=== PATIENT | male | born 1950 | race Caucasian/White ===

== ENCOUNTER 2022-09-02 09:08 | Inpatient (IN) ==
[2022-09-02] MEDS ORDERED: ONDANSETRON 4 MG/2 ML VIAL IV STA (09:28)
[2022-09-02] MEDS ORDERED: SODIUM CHLORIDE 0.9% 1,000 ML IV STA ×2 (09:28→10:50)
[2022-09-02 09:53] LABS: Basophils # 0.1 10*3/uL (0.0-0.2); Basophils % 0.7 % (0.0-0.8); Eosinophils # 0.1 10*3/uL (0.0-0.87); Eosinophils % 0.5 % (0.00-10.9); Hematocrit 46.1 VOL% (42.0-52.0); Hemoglobin 15.7 GM/DL (14.0-18.0); Immature Granulocytes % 0.4 %; Immature Granulocytes Absolute 0.05 #; Lymphocytes # 3.8 10*3/uL (1.4-4.0); Lymphocytes % 27.8 % (21.2-54.2); Mean Corpuscular HGB Conc 34.1 GM/DL (32-36); Mean Corpuscular Volume 90.9 FL (87-102); Mean Platelet Volume 10.7 FL (9.6-12.0); Monocytes # 1.2 10*3/uL (0.11-0.8); Monocytes % 8.6 % (1.7-12.7); Platelet Count 392 T/CUMM (130-400); Red Blood Count 5.07 MC/CUMM (3.8-5.5); Red Cell Distribution Width 14.1 % (9.3-17.3); White Blood Count 13.8 T/CUMM (4-12)
[2022-09-02 10:09] LABS: Alanine Aminotransferase 14 U/L (16-61); Albumin 3.5 G/DL (3.4-5.0); Alkaline Phosphatase 84 U/L (45-117); Aspartate Amino Transferase 20 U/L (0-37); Blood Urea Nitrogen 16 MG/DL (7-18); Carbon Dioxide 22 MMOL/L (21-32); Chloride 100 MMOL/L (98-107); Glucose 123 MG/DL (74-106); Osmolality,Calculated 265.5 MOS/KG (273-304); Potassium 4.2 MMOL/L (3.5-5.1); Sodium 132 MMOL/L (136-145); Total Protein 7.6 G/DL (6.4-8.2)
[2022-09-02] MEDS ORDERED: hydrALAZINE 20 MG/1 ML VIAL IV PRN (11:19)
[2022-09-02] MEDS ORDERED: SIMETHICONE CHEW 125 MG TABLET PO PRN (11:19)
[2022-09-02 11:29] LABS: PT Patient Result 20.8 SECS (10.1-12.1)
[2022-09-02] MEDS ORDERED: ENOXAPARIN 40 MG/0.4 ML SYRINGE SUBCUT SCH (11:30)
[2022-09-02 12:24] LABS: Mucus,Urine Occasional /LPF (Occasional); RBC,Urine 1 /HPF (0-4)
[2022-09-02 12:28] LABS: Urine Appearance Clear (Clear); Urine Color Yellow (Yellow); Urine Specific Gravity 1.015 (1.001-1.035)
[2022-09-02 12:29] LABS: Bilirubin,Urine Negative (Negative); Blood, Urine Negative (Negative); Glucose,Urine (UA) Negative (Negative); Ketones,Urine 40 mg/dL (Negative); Nitrite,Urine Negative (Negative); Protein,Urine Negative (Negative); Urine Urobilinogen 0.2 eU/dL (<2.0)
[2022-09-02] MEDS: PANTOPRAZOLE 40 MG VIAL IV SCH (12:48)
[2022-09-02] MEDS: LACTATED RINGERS 1,000 ML IV SCH (12:48)
[2022-09-02] MEDS: SUCRALFATE 1 GM/10 ML UDCUP PO SCH ×4 (14:17→21:29)
[2022-09-02] MEDS: ALBUTEROL 2.5 MG/3 ML NEB RESP TX SCH ×2 (14:46→18:57)
[2022-09-02] MEDS: carvediloL 6.25 MG TABLET PO SCH (21:11)
[2022-09-02] MEDS: predniSONE 20 MG TABLET PO SCH ×2 (21:11→21:29)
[2022-09-02] MEDS: TAMSULOSIN 0.4 MG CAPSULE PO SCH (21:12)
[2022-09-02] MEDS: SACUBITRIL/VALSARTAN 49-51 MG TABLET PO SCH (21:12)
[2022-09-02] MEDS: MAGNESIUM OXIDE 400 MG TABLET PO SCH (21:29)
[2022-09-03] MEDS: ALBUTEROL 2.5 MG/3 ML NEB RESP TX SCH ×4 (00:21→18:50)
[2022-09-03] MEDS: LACTATED RINGERS 1,000 ML IV SCH ×3 (00:26→23:33)
[2022-09-03 05:37] LABS: Basophils # 0.1 10*3/uL (0.0-0.2); Basophils % 0.4 % (0.0-0.8); Eosinophils # 0.1 10*3/uL (0.0-0.87); Eosinophils % 0.7 % (0.00-10.9); Hematocrit 37.9 VOL% (42.0-52.0); Hemoglobin 12.8 GM/DL (14.0-18.0); Immature Granulocytes % 0.4 %; Immature Granulocytes Absolute 0.05 #; Lymphocytes # 3.5 10*3/uL (1.4-4.0); Lymphocytes % 25.5 % (21.2-54.2); Mean Corpuscular HGB Conc 33.8 GM/DL (32-36); Mean Corpuscular Volume 91.8 FL (87-102); Mean Platelet Volume 10.8 FL (9.6-12.0); Monocytes # 1.4 10*3/uL (0.11-0.8); Monocytes % 10.2 % (1.7-12.7); Neutrophils % 62.8 % (38.7-73.9); Platelet Count 324 T/CUMM (130-400); Red Blood Count 4.13 MC/CUMM (3.8-5.5); Red Cell Distribution Width 14.2 % (9.3-17.3); White Blood Count 13.6 T/CUMM (4-12)
[2022-09-03 06:12] LABS: Albumin 2.4 G/DL (3.4-5.0); Bilirubin,Total 0.8 MG/DL (0.20-1.00); Calcium 8.3 MG/DL (8.5-10.1); Osmolality,Calculated 274.5 MOS/KG (273-304); Potassium 3.6 MMOL/L (3.5-5.1); Risk Ratio 4.35; Thyroid Stimulating Hormone 1.48 uIU/ml (0.358-3.74); Total Protein 5.6 G/DL (6.4-8.2); VLDL Cholesterol 19.4 MG/DL
[2022-09-03] MEDS: ONDANSETRON 4 MG/2 ML VIAL IV PRN (07:50)
[2022-09-03 08:35] LABS: INR 1.8; PT Patient Result 18.8 SECS (10.1-12.1)
[2022-09-03] MEDS ORDERED: WARFARIN 3 MG TABLET PO SCH (09:00)
[2022-09-03] MEDS: PANTOPRAZOLE 40 MG VIAL IV SCH (09:21)
[2022-09-03] MEDS: SACUBITRIL/VALSARTAN 49-51 MG TABLET PO SCH ×2 (09:22→20:13)
[2022-09-03] MEDS: predniSONE 20 MG TABLET PO SCH ×2 (09:23→20:14)
[2022-09-03] MEDS: ASPIRIN EC 81 MG TABLET PO SCH (09:23)
[2022-09-03] MEDS: SERTRALINE 25 MG TABLET PO SCH (09:23)
[2022-09-03] MEDS: carvediloL 6.25 MG TABLET PO SCH ×2 (09:23→20:13)
[2022-09-03] MEDS ORDERED: HYDROmorphone 1 MG/1 ML SYRINGE IV PRN (11:48)
[2022-09-03] MEDS ORDERED: KETOROLAC 15 MG/1 ML VIAL IV PRN (11:49)
[2022-09-03] MEDS: ACETAMINOPHEN 325 MG TABLET PO PRN (17:14)
[2022-09-03] MEDS: WARFARIN 3 MG TABLET PO SCH (17:31)
[2022-09-03] MEDS: TAMSULOSIN 0.4 MG CAPSULE PO SCH (20:13)
[2022-09-03] MEDS: MAGNESIUM OXIDE 400 MG TABLET PO SCH (20:13)
[2022-09-04 05:33] LABS: Basophils # 0.1 10*3/uL (0.0-0.2); Basophils % 0.5 % (0.0-0.8); Eosinophils # 0.2 10*3/uL (0.0-0.87); Eosinophils % 1.6 % (0.00-10.9); Hematocrit 40.2 VOL% (42.0-52.0); Hemoglobin 13.6 GM/DL (14.0-18.0); Immature Granulocytes % 0.6 %; Immature Granulocytes Absolute 0.07 #; Lymphocytes # 3.5 10*3/uL (1.4-4.0); Lymphocytes % 27.4 % (21.2-54.2); Mean Corpuscular HGB Conc 33.8 GM/DL (32-36); Mean Corpuscular Volume 93.3 FL (87-102); Monocytes # 1.1 10*3/uL (0.11-0.8); Monocytes % 8.6 % (1.7-12.7); Neutrophils % 61.3 % (38.7-73.9); Platelet Count 351 T/CUMM (130-400); Red Blood Count 4.31 MC/CUMM (3.8-5.5); Red Cell Distribution Width 14.2 % (9.3-17.3); White Blood Count 12.7 T/CUMM (4-12)
[2022-09-04 05:51] LABS: INR 2.2
[2022-09-04 05:58] LABS: Calcium 8.2 MG/DL (8.5-10.1); Osmolality,Calculated 274.5 MOS/KG (273-304); Potassium 3.8 MMOL/L (3.5-5.1)
[2022-09-04] MEDS: ALBUTEROL 2.5 MG/3 ML NEB RESP TX SCH ×4 (07:40→19:30)
[2022-09-04] MEDS: SACUBITRIL/VALSARTAN 49-51 MG TABLET PO SCH ×2 (10:00→20:57)
[2022-09-04] MEDS: carvediloL 6.25 MG TABLET PO SCH ×2 (10:00→20:57)
[2022-09-04] MEDS: PANTOPRAZOLE 40 MG VIAL IV SCH (10:00)
[2022-09-04] MEDS: ASPIRIN EC 81 MG TABLET PO SCH (10:00)
[2022-09-04] MEDS: SERTRALINE 25 MG TABLET PO SCH (10:00)
[2022-09-04] MEDS: predniSONE 20 MG TABLET PO SCH ×2 (10:01→22:43)
[2022-09-04] MEDS: LACTATED RINGERS 1,000 ML IV SCH ×2 (10:11→22:43)
[2022-09-04] MEDS: WARFARIN 3 MG TABLET PO SCH (17:56)
[2022-09-04] MEDS: ACETAMINOPHEN 325 MG TABLET PO PRN (17:56)
[2022-09-04] MEDS: TAMSULOSIN 0.4 MG CAPSULE PO SCH (20:57)
[2022-09-04] MEDS: MAGNESIUM OXIDE 400 MG TABLET PO SCH (20:57)
[2022-09-05 05:09] LABS: Basophils # 0.1 10*3/uL (0.0-0.2); Basophils % 0.4 % (0.0-0.8); Eosinophils # 0.3 10*3/uL (0.0-0.87); Eosinophils % 2.2 % (0.00-10.9); Hemoglobin 12.9 GM/DL (14.0-18.0); Immature Granulocytes % 0.4 %; Immature Granulocytes Absolute 0.05 #; Lymphocytes # 3.1 10*3/uL (1.4-4.0); Lymphocytes % 22.7 % (21.2-54.2); Mean Corpuscular HGB Conc 33.9 GM/DL (32-36); Mean Corpuscular Volume 90.9 FL (87-102); Mean Platelet Volume 10.7 FL (9.6-12.0); Monocytes # 1.4 10*3/uL (0.11-0.8); Monocytes % 10.6 % (1.7-12.7); Neutrophils % 63.7 % (38.7-73.9); Platelet Count 356 T/CUMM (130-400); Red Blood Count 4.18 MC/CUMM (3.8-5.5); White Blood Count 13.6 T/CUMM (4-12)
[2022-09-05 05:23] LABS: Calcium 8.4 MG/DL (8.5-10.1); Osmolality,Calculated 270.8 MOS/KG (273-304); Potassium 3.7 MMOL/L (3.5-5.1)
[2022-09-05] MEDS: LACTATED RINGERS 1,000 ML IV SCH ×3 (06:04→17:40)
[2022-09-05 06:12] LABS: Anisocytosis 1+; Macrocytosis Slight; Platelet Estimate Normal
[2022-09-05 06:13] LABS: Target Cells Few
[2022-09-05] MEDS: ALBUTEROL 2.5 MG/3 ML NEB RESP TX SCH ×4 (07:08→19:15)
[2022-09-05] MEDS ORDERED: MAGNESIUM SULF RIDER 2 GM/50 ML PREMIX IV ONE (07:26)
[2022-09-05] MEDS: ASPIRIN EC 81 MG TABLET PO SCH (09:54)
[2022-09-05] MEDS: predniSONE 20 MG TABLET PO SCH ×2 (09:54→21:28)
[2022-09-05] MEDS: carvediloL 6.25 MG TABLET PO SCH ×2 (09:54→21:25)
[2022-09-05] MEDS: SACUBITRIL/VALSARTAN 49-51 MG TABLET PO SCH ×2 (09:55→21:25)
[2022-09-05] MEDS: PANTOPRAZOLE 40 MG VIAL IV SCH (09:55)
[2022-09-05] MEDS: SERTRALINE 25 MG TABLET PO SCH (09:56)
[2022-09-05] MEDS: ONDANSETRON 4 MG/2 ML VIAL IV PRN (12:29)
[2022-09-05] MEDS: WARFARIN 3 MG TABLET PO SCH (18:13)
[2022-09-05] MEDS: MAGNESIUM OXIDE 400 MG TABLET PO SCH (21:25)
[2022-09-05] MEDS: TAMSULOSIN 0.4 MG CAPSULE PO SCH (21:25)
[2022-09-05] MEDS: ACETAMINOPHEN 325 MG TABLET PO PRN (21:31)
[2022-09-06] MEDS: LACTATED RINGERS 1,000 ML IV SCH ×2 (03:56→13:21)
[2022-09-06] MEDS: ALBUTEROL 2.5 MG/3 ML NEB RESP TX SCH ×3 (06:55→13:34)
[2022-09-06 08:05] LABS: Basophils # 0.1 10*3/uL (0.0-0.2); Basophils % 0.5 % (0.0-0.8); Eosinophils # 0.3 10*3/uL (0.0-0.87); Eosinophils % 2.2 % (0.00-10.9); Hematocrit 39.6 VOL% (42.0-52.0); Hemoglobin 13.3 GM/DL (14.0-18.0); Immature Granulocytes % 0.4 %; Immature Granulocytes Absolute 0.04 #; Lymphocytes # 2.7 10*3/uL (1.4-4.0); Lymphocytes % 23.6 % (21.2-54.2); Mean Corpuscular HGB Conc 33.6 GM/DL (32-36); Mean Corpuscular Volume 90.8 FL (87-102); Monocytes % 9.3 % (1.7-12.7); Platelet Count 386 T/CUMM (130-400); Red Blood Count 4.36 MC/CUMM (3.8-5.5); Red Cell Distribution Width 14.3 % (9.3-17.3); White Blood Count 11.2 T/CUMM (4-12)
[2022-09-06 08:20] LABS: Calcium 8.5 MG/DL (8.5-10.1); Osmolality,Calculated 270.8 MOS/KG (273-304); Potassium 3.7 MMOL/L (3.5-5.1)
[2022-09-06 08:23] LABS: Anisocytosis 1+; Burr Cells Few; Platelet Estimate Normal
[2022-09-06 08:24] VITALS: BP 138/70
[2022-09-06 08:24] LABS: Macrocytosis Slight
[2022-09-06] MEDS: SACUBITRIL/VALSARTAN 49-51 MG TABLET PO SCH (08:38)
[2022-09-06] MEDS: carvediloL 6.25 MG TABLET PO SCH (08:38)
[2022-09-06] MEDS: PANTOPRAZOLE 40 MG VIAL IV SCH (08:39)
[2022-09-06] MEDS: SERTRALINE 25 MG TABLET PO SCH (08:39)
[2022-09-06] MEDS: ASPIRIN EC 81 MG TABLET PO SCH (08:39)
[2022-09-06] MEDS: predniSONE 20 MG TABLET PO SCH (08:40)
[2022-09-09] MEDS ORDERED: WARFARIN 4 MG TABLET PO SCH (18:00)
== END 2022-09-06 16:28 | disposition home or self-care (01) | DRG 389 ==
LOC: N.EDINP 09:08 → N.ED 09:08 → N.EDINP 13:28 → N.2E 13:33 → SUATTDRO 09-03 08:08
PROVIDERS: ADMIT Internal Medicine; ATTEND Internal Medicine

== ENCOUNTER 2022-09-13 09:10 | Observation (INO) ==
[2022-09-13] MEDS ORDERED: ONDANSETRON 4 MG/2 ML VIAL IV STA ×2 (09:52→13:52)
[2022-09-13] MEDS ORDERED: SODIUM CHLORIDE 0.9% 1,000 ML IV STA ×2 (09:52→13:52)
[2022-09-13 10:10] LABS: Basophils # 0.1 10*3/uL (0.0-0.2); Eosinophils # 0.1 10*3/uL (0.0-0.87); Eosinophils % 0.9 % (0.00-10.9); Hematocrit 41.7 VOL% (42.0-52.0); Hemoglobin 14.3 GM/DL (14.0-18.0); Immature Granulocytes % 0.2 %; Immature Granulocytes Absolute 0.02 #; Lymphocytes # 3.3 10*3/uL (1.4-4.0); Lymphocytes % 33.1 % (21.2-54.2); Mean Corpuscular HGB Conc 34.3 GM/DL (32-36); Mean Corpuscular Volume 89.9 FL (87-102); Mean Platelet Volume 11.2 FL (9.6-12.0); Monocytes # 1.4 10*3/uL (0.11-0.8); Monocytes % 14.1 % (1.7-12.7); Neutrophils % 50.7 % (38.7-73.9); Platelet Count 369 T/CUMM (130-400); Red Blood Count 4.64 MC/CUMM (3.8-5.5); Red Cell Distribution Width 14.4 % (9.3-17.3); White Blood Count 9.8 T/CUMM (4-12)
[2022-09-13 10:34] LABS: Albumin 3.7 G/DL (3.4-5.0); Bilirubin,Total 1.7 MG/DL (0.20-1.00); Calcium 9.7 MG/DL (8.5-10.1); Osmolality,Calculated 271.8 MOS/KG (273-304); Potassium 3.9 MMOL/L (3.5-5.1); Total Protein 7.9 G/DL (6.4-8.2)
[2022-09-13] MEDS ORDERED: hydrALAZINE 20 MG/1 ML VIAL IV PRN (17:17)
[2022-09-13] MEDS ORDERED: ACETAMINOPHEN 325 MG TABLET PO PRN (17:17)
[2022-09-13] MEDS ORDERED: MORPHINE 2 MG/1 ML SYRINGE IV PRN (17:17)
[2022-09-13 17:40] LABS: Bilirubin,Urine Negative (Negative); Blood, Urine Negative (Negative); Glucose,Urine (UA) Negative (Negative); Ketones,Urine 40 mg/dL (Negative); Nitrite,Urine Negative (Negative); Protein,Urine Negative (Negative); Urine Appearance Clear (Clear); Urine Color Yellow (Yellow); Urine Specific Gravity 1.015 (1.001-1.035); Urine Urobilinogen 0.2 eU/dL (<2.0)
[2022-09-13 17:44] LABS: RBC,Urine 1 /HPF (0-4)
[2022-09-13] MEDS: DEXTROSE 5% NACL 0.45% 1,000 ML IV SCH (18:05)
[2022-09-13] MEDS: ONDANSETRON 4 MG/2 ML VIAL IV PRN ×2 (19:04→23:00)
[2022-09-13] MEDS ORDERED: WARFARIN 3 MG TABLET PO SCH (19:30)
[2022-09-13] MEDS: carvediloL 6.25 MG TABLET PO SCH (20:39)
[2022-09-13] MEDS: TAMSULOSIN 0.4 MG CAPSULE PO SCH (20:39)
[2022-09-13] MEDS: SACUBITRIL/VALSARTAN 49-51 MG TABLET PO SCH (20:39)
[2022-09-13] MEDS: MAGNESIUM OXIDE 400 MG TABLET PO SCH (20:40)
[2022-09-13] MEDS ORDERED: ENOXAPARIN 40 MG/0.4 ML SYRINGE SUBCUT SCH (21:00)
[2022-09-13 21:54] LABS: INR 1.2; PT Patient Result 13.5 SECS (10.1-12.1)
[2022-09-14] MEDS: ONDANSETRON 4 MG/2 ML VIAL IV PRN (03:58)
[2022-09-14 06:01] LABS: Basophils # 0.1 10*3/uL (0.0-0.2); Basophils % 1.1 % (0.0-0.8); Eosinophils # 0.1 10*3/uL (0.0-0.87); Eosinophils % 0.8 % (0.00-10.9); Hematocrit 35.9 VOL% (42.0-52.0); Hemoglobin 11.8 GM/DL (14.0-18.0); Immature Granulocytes % 0.3 %; Immature Granulocytes Absolute 0.02 #; Lymphocytes # 1.9 10*3/uL (1.4-4.0); Lymphocytes % 26.2 % (21.2-54.2); Mean Corpuscular HGB Conc 32.9 GM/DL (32-36); Mean Corpuscular Volume 93.5 FL (87-102); Mean Platelet Volume 11.7 FL (9.6-12.0); Monocytes # 1.1 10*3/uL (0.11-0.8); Monocytes % 14.7 % (1.7-12.7); Neutrophils % 56.9 % (38.7-73.9); Platelet Count 321 T/CUMM (130-400); Red Blood Count 3.84 MC/CUMM (3.8-5.5); Red Cell Distribution Width 14.8 % (9.3-17.3)
[2022-09-14 06:08] LABS: INR 1.2
[2022-09-14 06:19] LABS: Calcium 8.3 MG/DL (8.5-10.1); Osmolality,Calculated 277.5 MOS/KG (273-304); Potassium 3.6 MMOL/L (3.5-5.1)
[2022-09-14 06:25] LABS: Folate 15.06 NG/ML (5.38-24.0); Vitamin B12 536 PG/ML (211-911)
[2022-09-14 06:57] LABS: Sedimentation Rate-Westergren 17 MM/HR (0-20)
[2022-09-14] MEDS: SACUBITRIL/VALSARTAN 49-51 MG TABLET PO SCH ×2 (09:21→21:08)
[2022-09-14] MEDS: carvediloL 6.25 MG TABLET PO SCH ×2 (09:21→21:08)
[2022-09-14] MEDS: ASPIRIN EC 81 MG TABLET PO SCH (09:22)
[2022-09-14] MEDS: SERTRALINE 25 MG TABLET PO SCH (09:22)
[2022-09-14] MEDS ORDERED: methylPREDNISolone SOD SUC 40 MG/1 ML VIAL IV ONE (09:47)
[2022-09-14] MEDS ORDERED: BENZONATATE 100 MG CAPSULE PO PRN (10:23)
[2022-09-14] MEDS ORDERED: PROMETHAZINE INJ 25 MG in SODIUM CHLORIDE 0.9% 50 ML IV PRN (10:23)
[2022-09-14] MEDS: PANTOPRAZOLE 40 MG TABLET PO SCH ×2 (10:40→21:09)
[2022-09-14] MEDS: METOCLOPRAMIDE 5 MG TABLET PO SCH ×3 (10:40→21:09)
[2022-09-14] MEDS: DEXTROSE 5% NACL 0.45% 1,000 ML IV SCH ×2 (10:40→23:31)
[2022-09-14] MEDS: CETIRIZINE 10 MG TABLET PO SCH (10:40)
[2022-09-14] MEDS: ASCORBIC ACID 500 MG TABLET PO SCH ×2 (10:40→21:10)
[2022-09-14] MEDS ORDERED: WARFARIN 7.5 MG TABLET PO SCH (18:00)
[2022-09-14] MEDS: MAGNESIUM OXIDE 400 MG TABLET PO SCH (21:09)
[2022-09-14] MEDS: TAMSULOSIN 0.4 MG CAPSULE PO SCH (21:09)
[2022-09-15 05:26] LABS: Basophils % 0.2 % (0.0-0.8); Hematocrit 37.1 VOL% (42.0-52.0); Hemoglobin 12.5 GM/DL (14.0-18.0); Immature Granulocytes % 0.2 %; Immature Granulocytes Absolute 0.01 #; Lymphocytes # 1.7 10*3/uL (1.4-4.0); Lymphocytes % 26.9 % (21.2-54.2); Mean Corpuscular HGB Conc 33.7 GM/DL (32-36); Mean Corpuscular Volume 92.5 FL (87-102); Mean Platelet Volume 11.7 FL (9.6-12.0); Monocytes # 0.7 10*3/uL (0.11-0.8); Monocytes % 11.7 % (1.7-12.7); Platelet Count 294 T/CUMM (130-400); Red Blood Count 4.01 MC/CUMM (3.8-5.5); Red Cell Distribution Width 14.4 % (9.3-17.3); White Blood Count 6.14 T/CUMM (4-12)
[2022-09-15 05:27] LABS: INR 1.7; PT Patient Result 17.7 SECS (10.1-12.1)
[2022-09-15 05:42] LABS: Calcium 8.6 MG/DL (8.5-10.1); Osmolality,Calculated 276.7 MOS/KG (273-304); Potassium 3.6 MMOL/L (3.5-5.1)
[2022-09-15] MEDS ORDERED: WARFARIN 10 MG TABLET PO ONE (08:01)
[2022-09-15] MEDS: METOCLOPRAMIDE 5 MG TABLET PO SCH ×2 (08:26→11:52)
[2022-09-15] MEDS: ASPIRIN EC 81 MG TABLET PO SCH (08:27)
[2022-09-15] MEDS: SACUBITRIL/VALSARTAN 49-51 MG TABLET PO SCH (08:27)
[2022-09-15] MEDS: ASCORBIC ACID 500 MG TABLET PO SCH (08:28)
[2022-09-15] MEDS: carvediloL 6.25 MG TABLET PO SCH (08:29)
[2022-09-15] MEDS: PANTOPRAZOLE 40 MG TABLET PO SCH (08:29)
[2022-09-15] MEDS: SERTRALINE 25 MG TABLET PO SCH (08:29)
[2022-09-15] MEDS: CETIRIZINE 10 MG TABLET PO SCH (08:29)
[2022-09-15] MEDS ORDERED: WARFARIN 7.5 MG TABLET PO ONE (08:30)
[2022-09-15] MEDS ORDERED: predniSONE 20 MG TABLET PO SCH (09:00)
[2022-09-15 11:44] VITALS: BP 109/62
[2022-09-15 12:20] LABS: Hemoglobin A1 (Alkaline) 97.7 % (96.5-98.5); Hemoglobin A2 (Alkaline) 2.3 % (1.5-3.5)
[2022-09-16] MEDS ORDERED: WARFARIN 4 MG TABLET PO SCH ×2 (18:00)
[2022-09-17] MEDS ORDERED: WARFARIN 4 MG TABLET PO SCH (18:00)
== END 2022-09-15 14:39 | disposition home or self-care (01) ==
LOC: N.ED 09:10 → N.EDINP 09:10 → SUATTDRO 17:17 → N.EDINP 20:04 → N.3E 21:04
PROVIDERS: ADMIT Hospitalist; ATTEND Family Medicine